=== PATIENT | male | born 1945 | race Caucasian/White ===

== ENCOUNTER 2021-04-13 14:13 | Outpatient (CLI) | payer OTHER, SELFPAY ==
--- NOTE | 2021-04-13 14:45 | USCV_ITS ---
Tanvi Mario Age: 75 Gender: M : 1945 Exam Date: 04/13/2021 14:52 Ordering Phys: Pam Nogueira MD ([email or web address]) Technologist: Javi Kaur [place] [facility] [place]: STAGE 3 KIDNEY CA BP: 123 / 76 HR: 68 Rhythm: Sinus Technical Quality: Adequate MEASUREMENTS (Male / Female) Normal Values 2D ECHO LV Diastolic Diameter PLAX 4.0 cm 4.2 - 5.9 / 3.9 - 5.3 cm LV Systolic Diameter PLAX 2.5 cm IVS Diastolic Thickness 1.2 cm 0.6 - 1.0 / 0.6 - 0.9 cm IVS Systolic Thickness 1.4 cm LVPW Diastolic Thickness 1.1 cm 0.6 - 1.0 / 0.6 - 0.9 cm LVPW Systolic Thickness 1.4 cm LVOT Diameter 2.0 cm LV Ejection Fraction 2D Teich 68.4 % LV Ejection Fraction MOD 2C 68.0 % LV Ejection Fraction 2C AL 67.7 % LA Diameter 3.9 cm LA Width 5.3 cm LA Height 5.6 cm RA Width 4.6 cm RA Height 5.4 cm Aorta at Sinotubular Diameter 3.5 cm DOPPLER AV Peak Velocity 153.0 cm/s LVOT Peak Velocity 101.0 cm/s AV Area Cont Eq vti 2.7 cm squared AV Area Cont Eq pk 2.1 cm squared MV Area PHT 5.0 cm squared Mitral E to A Ratio 0.6 MV E' Velocity 32.0 cm/s Mitral E to MV E' Ratio 8.9 Mitral E to LV E' Lateral Ratio 7.8 Mitral E to LV E' Septal Ratio 10.6 TR Peak Velocity 194.7 cm/s TR Peak Gradient 15.2 mmHg TV Peak E Velocity 92.0 cm/s Right Atrial Pressure 3.0 mmHg Pulmonary Artery Systolic Pressu 18.2 mmHg FINDINGS Left Ventricle Normal left ventricular size, systolic function and wall thickness, with no regional wall motion abnormalities. Left ventricular ejection fraction is estimated at 70 %. Grade I diastolic dysfunction (abnormal relaxation filling pattern), normal to mildly elevated filling pressures. Right Ventricle Normal right ventricular size and systolic function. Right ventricular systolic pressure 20 mmHg. Right Atrium Normal right atrial size. Right atrial pressure estimated at 3 mm Hg. Left Atrium Mildly increased left atrial size. Mitral Valve Structurally normal mitral valve. No mitral valve stenosis. Trace mitral valve regurgitation. Aortic Valve Structurally normal trileaflet aortic valve. No aortic valve stenosis. No aortic valve regurgitation. Tricuspid Valve Structurally normal tricuspid valve. Trace tricuspid valve regurgitation. Pulmonic Valve Pulmonic valve not well visualized. Pericardium No pericardial effusion. Aorta Normal size aortic root and proximal ascending aorta. Normal- sized inferior vena cava. CONCLUSIONS 1. Normal left ventricular size, systolic function and wall thickness, with no regional wall motion abnormalities. Left ventricular ejection fraction is estimated at 70 %. Grade I diastolic dysfunction (abnormal relaxation filling pattern), normal to mildly elevated filling pressures. 2. Normal right ventricular size and systolic function. 3. Pulmonary artery pressure estimated at 20 mmHg. 4. Mildly increased left atrial size. 5. No prior similar studies to compare. Pam Nogueira MD (Electronically Signed) Final Date: 14 April 2021 18:04 S
--- NOTE | 2021-04-13 15:00 | US_ITS ---
WS: [id number] RENAL ULTRASOUND HISTORY: STAGE 3A CHRONIC KIDNEY DZ COMPARISON: None available. TECHNIQUE: 2-D and color Doppler imaging of the kidney submitted. Right kidney: 11.3 cm x 5.8 cm x 5.0 cm. Normal echogenicity with no hydronephrosis or mass. Left kidney: 10.6 cm x 6.1 cm x 6.0 cm. Normal echogenicity with no hydronephrosis or mass. Aorta: Normal. Urinary Bladder: Normal distention. US/US renal BI* [id number] IMPRESSION: Normal renal ultrasound.
== END 2021-04-13 14:14 | disposition home or self-care (01) ==
LOC: RAD 14:16
PROVIDERS: PCP Nurse Practitioner; Visit Provider Registered Nurse
DX: N18.31 Chronic kidney disease, stage 3a (principal)
CPT/HCPCS: 76770; 93306

== ENCOUNTER → 2022-05-14 10:29 | Outpatient (BNVA) | payer OTHER, SELFPAY | PROVIDERS: PCP Nurse Practitioner; Visit Provider Internal Medicine Cardiovascular Disease | DX: I49.3 Ventricular premature depolarization (principal); R00.1 Bradycardia, unspecified; I10 Essential (primary) hypertension; Z87.891 Personal history of nicotine dependence | CPT/HCPCS: 99214 ==

== ENCOUNTER → 2023-01-29 13:02 | Outpatient (BNVA) | payer OTHER, SELFPAY | PROVIDERS: PCP Nurse Practitioner; Visit Provider Dermatology | DX: L57.0 Actinic keratosis (principal); L81.4 Other melanin hyperpigmentation; L57.8 Other skin changes due to chronic exposure to nonionizing radiation; Z85.828 Personal history of other malignant neoplasm of skin; Z87.891 Personal history of nicotine dependence | CPT/HCPCS: 17000; 17003; 99213 ==

== ENCOUNTER → 2023-05-13 11:03 | Outpatient (BNVA) | payer OTHER, SELFPAY | PROVIDERS: PCP Nurse Practitioner; Visit Provider Internal Medicine Cardiovascular Disease | DX: R00.1 Bradycardia, unspecified (principal); I49.3 Ventricular premature depolarization; I10 Essential (primary) hypertension; Z87.891 Personal history of nicotine dependence | CPT/HCPCS: 99214 ==

== ENCOUNTER → 2024-01-30 13:45 | Outpatient (BNVA) | payer OTHER, SELFPAY | PROVIDERS: PCP Nurse Practitioner; Visit Provider Nurse Practitioner Family | DX: L81.4 Other melanin hyperpigmentation (principal); L57.8 Other skin changes due to chronic exposure to nonionizing radiation; L57.0 Actinic keratosis; Z85.828 Personal history of other malignant neoplasm of skin | CPT/HCPCS: 17004; 99214 ==

== ENCOUNTER → 2024-05-11 10:03 | Outpatient (BNVA) | payer OTHER, SELFPAY | PROVIDERS: PCP Nurse Practitioner; Visit Provider Internal Medicine Cardiovascular Disease | DX: I49.3 Ventricular premature depolarization (principal); E78.2 Mixed hyperlipidemia; I10 Essential (primary) hypertension; E11.9 Type 2 diabetes mellitus without complications; Z87.891 Personal history of nicotine dependence; Z79.84 Long term (current) use of oral hypoglycemic drugs | CPT/HCPCS: 99214 ==

== ENCOUNTER 2024-06-17 15:01 | Outpatient (CLI) | payer OTHER, SELFPAY ==
[2024-06-17 15:55] LABS: Basophils % 0.6 %; Eosinophils # 0.4 10^3/uL (0.0-0.8); Eosinophils % 5.5 %; Hematocrit 44.6 % (37-53); Lymphocytes # 0.9 10^3/uL (0.8-4.8); Lymphocytes % 13.5 %; Mean Corpuscular HGB Conc 33.6 g/dL (30-55); Mean Corpuscular Hemoglobin 28.6 pg (27-33); Mean Platelet Volume 9.9 fL (7.4-10.4); Monocytes # 0.5 10^3/uL (0.2-0.9); Monocytes % 7.7 %; Neutrophils # 4.88 10^3/uL (1.8-7.7); Neutrophils % 72.4 %; Nucleated Red Blood Cells % 0 %; Platelet Count 156 10^3/cmm (157-399); Red Blood Count 5.25 10^6/uL (3.85-5.65); Red Cell Distribution Width 13.4 % (12.1-15.1); White Blood Count 6.74 10^3/uL (3.29-11.43)
[2024-06-17 17:11] LABS: 25 Hydroxy Vitamin D 30 ng/mL (30-100); Albumin Level 4.3 g/dL (3.5-5.2); Anion Gap 17.7 (5-19); Blood Urea Nitrogen 25 mg/dL (8-23); Calcium 9.6 mg/dL (8.5-10.5); Calcium 9.7 mg/dL (8.5-10.5); Carbon Dioxide 24 mmol/L (22-29); Chloride 99 mmol/L (98-107); Glucose 141 mg/dL (65-115); Phosphorus 3.6 mg/dL (2.5-4.5); Potassium 3.7 mmol/L (3.5-5.1); Sodium 137 mmol/L (136-145)
[2024-06-17 17:13] LABS: Parathyroid Hormone 27.1 pg/mL (15-65)
[2024-06-17 17:24] LABS: Creatinine Urine, Random 149 mg/dL (39-259); Microalbum Creatinine Ratio Ur 7 mg/dL (0-20); Microalbumin Random Urine 1 ug/dL (0-20)
== END 2024-06-17 15:02 | disposition home or self-care (01) ==
LOC: LAB 15:05
PROVIDERS: PCP Nurse Practitioner; Visit Provider Internal Medicine Nephrology
DX: N18.31 Chronic kidney disease, stage 3a (principal); E55.9 Vitamin D deficiency, unspecified
CPT/HCPCS: 80069; 82044; 82306; 82310; 83970; 85025

== ENCOUNTER 2024-11-05 07:14 | Emergency (ER) | payer OTHER, MEDICARE, SELFPAY ==
[2024-11-05 07:19] VITALS: BP 132/86; PULSE 92; RESP 18; TEMP 36.2; O2SAT 98; BMI 24.3
--- NOTE | 2024-11-05 07:22 | W.ED.NECK ---
HPI - Neck Pain/Injury General: Chief Complaint: Neck Pain/Injury Stated Complaint: neck pain/nausea Time Seen by Provider: 11/05/24 07:21 History of Present Illness: 79-year-old male presents emergency room complaining of severe neck pain. He has chronic pain in his neck. It is worse with movement. There is a difficulty sleeping due to discomfort. No recent reinjury or trauma he is having increasing discomfort. No fever sweats or chills Associated symptoms: Reports nausea Related Data Home Medications ?Medication ?Instructions ?Recorded ?Confirmed aspirin 81 mg tablet,delayed 81 mg PO DAILY 02/09/21 11/05/24 release cholecalciferol (vitamin D3) 25 25 mcg PO DAILY 02/09/21 11/05/24 mcg (1,000 unit) tablet hydrochlorothiazide 25 mg tablet 12.5 mg PO DAILY 02/09/21 11/05/24 metformin 500 mg tablet 250 mg PO BID 02/09/21 11/05/24 oxybutynin chloride 5 mg tablet 10 mg PO DAILY 04/13/21 11/05/24 amlodipine 10 mg tablet 10 mg PO DAILY 08/14/21 11/05/24 loratadine 10 mg capsule 10 mg PO DAILY 08/14/21 11/05/24 omeprazole 20 mg tablet,delayed 20 mg PO BID 08/14/21 11/05/24 release apple cider vinegar 600 mg capsule 600 mg PO DAILY 05/14/22 11/05/24 losartan 100 mg tablet 100 mg PO DAILY 05/14/22 11/05/24 omega-3 fatty acids 1,000 mg 500 mg PO DAILY 05/14/22 11/05/24 capsule psyllium husk 0.4 gram capsule 0.4 g PO DAILY 05/14/22 11/05/24 (Daily Fiber) ezetimibe 10 mg tablet 10 mg PO DAILY 05/11/24 11/05/24 rosuvastatin 10 mg tablet 10 mg PO DAILY 05/11/24 11/05/24 diclofenac sodium 1 % topical gel 4 g topical TID 11/05/24 11/05/24 empagliflozin 25 mg tablet 12.5 mg PO DAILY 11/05/24 11/05/24 Previous Rx's ?Medication ?Instructions ?Recorded hydrocodone 5 mg-acetaminophen 325 1 tab PO Q6H PRN pain #20 tabs 11/05/24 mg tablet prednisone 20 mg tablet 20 mg PO TID #15 tabs 11/05/24 tizanidine 4 mg tablet 4 mg PO Q6H PRN muscle spasticity 11/05/24 #20 tabs Allergies Allergy/AdvReac Type Severity Reaction Status Date / Time lisinopril Allergy Unknown Verified 05/11/24 10:17 Sulfa (Sulfonamide Allergy Unknown Verified 05/11/24 10:17 Antibiotics) Review of Systems Const: Denies: fever(s) or chills Card: Denies: chest pain Resp: Denies: dyspnea GI: Reports: nausea; Denies: abdominal pain : Denies: dysuria, urinary frequency or urinary urgency Musc: Reports: neck pain; Denies: back pain Skin/Breast: Denies: rash PFSH ED PFSH: Medical History PVC (premature ventricular contraction) History of nonmelanoma skin cancer HTN (hypertension) Hyperlipidemia Diabetes Surgical History History of total hip replacement Family History Denies family history of Diabetes CAD (coronary artery disease) Stroke Social History Smoking and tobacco/nicotine status: former use of tobacco/nicotine (quit in 1980) Alcohol intake: never Substance/Drug Use: never Physical Exam Const: GENERAL APPEARANCE: cooperative ORIENTATION/CONSCIOUSNESS: Yes awake, Yes oriented to person, Yes oriented to place and Yes oriented to time HENMT: COMMON NORMALS: normocephalic, atraumatic and hearing grossly normal bilaterally HEAD & SCALP: normocephalic and atraumatic Neck/C-Spine: OTHER: Pain with range of motion of the neck. Resp: COMMON NORMALS: normal respiratory effort, No retractions, No use of accessory muscles and clear to auscultation bilaterally AUSCULTATION: clear to auscultation bilaterally Cardio: COMMON NORMALS: regular rate, regular rhythm and No murmurs present (Cardio) RATE: regular rate RHYTHM: regular rhythm GI: COMMON NORMALS: Soft to palpation and No hepatosplenomegaly present AUSCULTATION: Yes normoactive bowel sounds PALPATION: Yes Soft to palpation, No Tenderness to palpation present (GI), No Guarding due to palpation present (GI) and Yes No hepatosplenomegaly present Extremity: COMMON NORMALS: normal to inspection, capillary refill normal, no clubbing, cyanosis or edema, no calf tenderness and no pedal edema Neuro: SENSORIUM/ORIENTATION: Yes oriented to person, Yes oriented to place and Yes oriented to time 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 CT of the neck shows central canal stenosis and foraminal stenosis. Not critical at this time patient has no loss of function. Will likely will need to follow-up with outpatient MRI will refer to neurosurgery and set up outpatient MRI Lab Data Radiology Impressions Cervical Spine CT 11/05/24 07:43 IMPRESSION: 1. No evidence of acute fracture or dislocation. 2. Advanced spondylitic changes cervical spine 3. Chronic appearing mild to moderate central canal stenosis C3-C4 C5-C6 and C6-C7. 4. Moderate to severe bony foraminal narrowing RIGHT C2-3, bilateral C3-4, bilateral C4-5, LEFT C5-6 5. Advanced facet arthropathy throughout the cervical spine 6. Findings could be followed up with cervical spine MRI All radiology interpretation(s) finalized by discharge Discharge Plan Discharge Patient Disposition: Home Clinical Impression: Neural foraminal stenosis of cervical spine, Spondylolisthesis of cervical region, Cervical spinal stenosis Condition: Stable Prescriptions: New tizanidine 4 mg tablet 4 mg PO Q6H PRN (Reason: muscle spasticity) Qty: 20 0RF Rx Instructions: do not exceed 3 doses per 24 hrs hydrocodone-acetaminophen 5-325 mg tablet 1 tab PO Q6H PRN (Reason: pain) Qty: 20 0RF prednisone 20 mg tablet 20 mg PO TID Qty: 15 0RF Rx Instructions: 1 p.o. 3 times daily x3 days, 1 p.o. twice daily x2 days, 1 p.o. daily x2 days No Action cholecalciferol (vitamin D3) 25 mcg (1,000 unit) tablet 25 mcg PO DAILY hydrochlorothiazide 25 mg tablet 12.5 mg PO DAILY metformin 500 mg tablet 250 mg PO BID aspirin 81 mg tablet,delayed release (DR/EC) 81 mg PO DAILY oxybutynin chloride 5 mg tablet 10 mg PO DAILY omeprazole 20 mg tablet,delayed release (DR/EC) 20 mg PO BID losartan 100 mg tablet 100 mg PO DAILY psyllium husk [Daily Fiber] 0.4 gram capsule 0.4 g PO DAILY apple cider vinegar 600 mg capsule 600 mg PO DAILY omega-3 fatty acids 1,000 mg capsule 500 mg PO DAILY loratadine 10 mg capsule 10 mg PO DAILY amlodipine 10 mg tablet 10 mg PO DAILY ezetimibe 10 mg tablet 10 mg PO DAILY rosuvastatin 10 mg tablet 10 mg PO DAILY empagliflozin 25 mg Tablet 12.5 mg PO DAILY diclofenac sodium 1 % Gel 4 g TOPICAL TID Discharge Orders: Discharge ED (Routine); Ordered 11/05/24 Ordered By: Gerry Noyola Referrals: Amanda Marina FNP [Primary Care Provider] - Patient Instructions: Opioid Safety, Pain Management Activity Restrictions/Additional Instructions: Thank you for choosing [facility] for your healthcare needs today. It is very important that you follow up as instructed or that you return to the Emergency Department should you have concerns or if your condition changes or worsens in any way. You were seen in the emergency room with a complaint of neck pain. CT shows central canal stenosis in the neck as well as stenosis around the nerve roots. Will start you on pain medications steroids and muscle relaxers. Case management make arrangements for you to follow-up with orthopedic spine surgery as well as an outpatient MRI of the neck. Print Language: Danish Coding Level of Care Code ED Digester Cook for Gayathri Rojas
[2024-11-05] MEDS: ketorolac 30 mg/mL INJ IVP (07:32)
[2024-11-05] MEDS: orphenadrine 30 mg/mL Inj 2 mL 60 MG IM (07:33)
[2024-11-05] MEDS: dexamethasone 10 mg/mL INJ IM (07:34)
--- NOTE | 2024-11-05 07:43 | CT_ITS ---
WS: [id number] CT CERVICAL SPINE TECHNIQUE: Noncontrast CT of the cervical spine with coronal and sagittal reformatted images. CLINICAL INFORMATION: pain DLP: 185.[address] scans at [facility] use at least one of these dose optimization techniques: automated exposure control; mA and/or kV adjustment per patient size (includes targeted exams where dose is matched to clinical indication); or iterative reconstruction. FINDINGS: Straightening of the normal cervical lordosis. Moderate spondylitic changes. Normal craniocervical junction. Normal C1-C2 articulation. Dens is normal in appearance. Normal occipital condyles. No high-grade spinal canal narrowing. Normal C1 ring. No evidence of acute fracture or dislocation. Calcification along the nuchal ligament. Disc osteophyte complexes worse at C3- C4 C5-C6 and C6-C7. Slight anterolisthesis C5 on C6. Normal prevertebral soft tissues. Mastoids air cells are well aerated. CT/CT cervical spin wo con* [id number] IMPRESSION: 1. No evidence of acute fracture or dislocation. 2. Advanced spondylitic changes cervical spine 3. Chronic appearing mild to moderate central canal stenosis C3-C4 C5-C6 and C 6-C7. 4. Moderate to severe bony foraminal narrowing RIGHT C2-3, bilateral C3-4, cecil ateral C4-5, LEFT C5-6 5. Advanced facet arthropathy throughout the cervical spine 6. Findings could be followed up with cervical spine MRI
[2024-11-05 08:44] VITALS: BP 135/79; PULSE 66; O2SAT 98
[2024-11-05] MEDS: morphine 4 mg/mL SDV 1 mL IVP (10:13)
[2024-11-05 10:49] VITALS: BP 129/78; PULSE 66; RESP 16; O2SAT 98
[2024-11-05 11:27] VITALS: BP 129/78; PULSE 66; O2SAT 98
--- NOTE | 2024-11-09 08:15 | DCPLANNER ---
mri faxed to scheduling, messaged ortho for follow up and faxed rfs to [facility]
== END 2024-11-05 11:29 | disposition home or self-care (01) ==
PROVIDERS: Emergency Provider Family Medicine; PCP Nurse Practitioner
DX: M48.02 Spinal stenosis, cervical region (principal); M43.12 Spondylolisthesis, cervical region; Z79.84 Long term (current) use of oral hypoglycemic drugs; Z79.82 Long term (current) use of aspirin; Z87.891 Personal history of nicotine dependence; E11.9 Type 2 diabetes mellitus without complications; E78.5 Hyperlipidemia, unspecified; I10 Essential (primary) hypertension; Z85.828 Personal history of other malignant neoplasm of skin
CPT/HCPCS: 72125; 96374; 96375; 99285; J1100; J1885; J2270; J2360

== ENCOUNTER 2024-11-09 09:44 | Outpatient (CLI) | payer OTHER, SELFPAY ==
--- NOTE | 2024-11-09 09:46 | MR_ITS ---
WS: [id number] MRI CERVICAL SPINE NONCONTRAST TECHNIQUE: Sagittal T1, T2 and STIR imaging. Axial T2, gradient, and fiesta imaging. CLINICAL INFORMATION: CERVICALGIA W/RADICULOPATHY COMPARISON: CT 11/05/2024 FINDINGS: Straightening of the normal cervical lordosis. Slight anterolisthesis C5 on C6 C6 on C7. Slight retrolisthesis C3 on C4. C2-C3: Moderate RIGHT bony foraminal narrowing. Moderate facet arthropathy. C3-C4: Disc osteophyte complex with moderate central canal stenosis. Moderate LEFT greater than RIGHT bony foraminal narrowing. Moderate facet arthropathy. C4-C5: Disc osteophyte complex with mild central canal stenosis. Moderate RIGHT greater than LEFT bony foraminal narrowing. Moderate facet arthropathy. C5-C6: Mild to moderate central canal stenosis. Moderate RIGHT and mild LEFT bony foraminal narrowing. Moderate facet arthropathy. C6-C7: LEFT paracentral protrusion impinges the LEFT ventral cervical cord. Moderate LEFT foraminal narrowing. Mild RIGHT foraminal narrowing. Mild to moderate central canal stenosis. C7-T1: Moderate LEFT bony foraminal narrowing. Moderate facet arthropathy. Spinal canal is patent. Visualized brain stem structures: Normal. Prevertebral soft tissues: Normal. MR/MR cervical spin wo con* [id number] IMPRESSION: 1. Moderate central canal stenosis C3-C4. 2. Mild to moderate central canal stenosis C4-C5 C5-C6 and C6-C7. 3. LEFT paracentral protrusion C6-7 impinges the LEFT ventral cervical cord. 4. Moderate bony foraminal narrowing RIGHT C2-3, RIGHT C4-5, RIGHT C5-6, and L EFT C6-7. 5. Moderate to advanced facet arthropathy throughout the cervical spine.
== END 2024-11-09 09:45 | disposition home or self-care (01) ==
LOC: RAD 09:45
PROVIDERS: PCP Nurse Practitioner; Visit Provider Family Medicine
DX: M54.12 Radiculopathy, cervical region (principal); M48.02 Spinal stenosis, cervical region; M50.223 Other cervical disc displacement at C6-C7 level; M47.892 Other spondylosis, cervical region; M25.78 Osteophyte, vertebrae; M48.03 Spinal stenosis, cervicothoracic region; M47.893 Other spondylosis, cervicothoracic region
CPT/HCPCS: 72141

== ENCOUNTER → 2024-11-26 08:03 | Outpatient (BNVA) | payer OTHER, SELFPAY | PROVIDERS: PCP Nurse Practitioner; Visit Provider Orthopaedic Surgery | DX: M54.2 Cervicalgia (principal) | CPT/HCPCS: 72050; 99204 ==

== ENCOUNTER → 2024-12-15 14:44 | Outpatient (BNVA) | payer OTHER, SELFPAY | PROVIDERS: PCP Nurse Practitioner; Referring Provider Nurse Practitioner; Visit Provider Nurse Practitioner Family | DX: M54.12 Radiculopathy, cervical region (principal); G89.29 Other chronic pain | CPT/HCPCS: 99214 ==

== ENCOUNTER → 2024-12-22 14:53 | Outpatient (BNVA) | payer OTHER, SELFPAY | PROVIDERS: PCP Nurse Practitioner; Visit Provider Nurse Practitioner Family | DX: M79.10 Myalgia, unspecified site (principal); M54.12 Radiculopathy, cervical region; G89.29 Other chronic pain | CPT/HCPCS: 20553; 99214; J1010; J3490 ==

== ENCOUNTER → 2025-01-04 08:42 | Outpatient (BNVA) | payer OTHER, SELFPAY | PROVIDERS: PCP Nurse Practitioner; Visit Provider Student in an Organized Health Care Education/Training Program | DX: Z12.11 Encounter for screening for malignant neoplasm of colon (principal) | CPT/HCPCS: 99204 ==

== ENCOUNTER → 2025-01-05 10:01 | Outpatient (BNVA) | payer OTHER, SELFPAY | PROVIDERS: PCP Nurse Practitioner; Visit Provider Nurse Practitioner Family | DX: M54.2 Cervicalgia (principal); M54.12 Radiculopathy, cervical region; G89.29 Other chronic pain | CPT/HCPCS: 99214 ==

== ENCOUNTER → 2025-01-20 13:26 | Outpatient (BNVA) | payer OTHER, SELFPAY | PROVIDERS: PCP Nurse Practitioner; Visit Provider Anesthesiology Pain Medicine | DX: M47.812 Spondylosis without myelopathy or radiculopathy, cervical region (principal); M54.2 Cervicalgia | CPT/HCPCS: 64490; 64491; 64492; J3490; J9999 ==

== ENCOUNTER 2025-01-26 09:14 | Day surgery (SDC) | payer OTHER, SELFPAY ==
[2025-01-26 09:29] VITALS: BP 131/75; PULSE 77; RESP 16; TEMP 36.5; O2SAT 98; BMI 23.7
--- NOTE | 2025-01-26 09:56 | ANES.PREANE2 ---
Pre-Anesthetic Assessment Height/Weight: Height 1.88 m Weight 83.915 kg Temp Pulse Resp BP Pulse Ox O2 Del Method 97.7 F 77 16 131/75 98 Room Air 01/26/25 09:01/26/25 09:29 01/26/25 09:29 01/26/25 09:29 01/26/25 09:29 01/26/25 09:29 Operation Date: 01/26/25 10:30 Proposed Procedures p Colonoscopy 38088 G0105 Z12.11(Not Applicable) - Jason Zamora MD Was Beta Vidya taken within 24 hours: N/A Was Clonidine taken within 24 hours: N/A Last intake: Intake Last Liquid Date 01/25/25 Last Liquid Time 23:00 Last Solid Date 01/24/25 Last Solid Time 20:00 Social No alcohol and No tobacco Exam alert, oriented x 3 and clear to auscultation bilaterally Airway Submandibular: within normal limits Cervical ROM: within normal limits Mallampati: Class II Dentition: other Comments: Comments: dentures Pulmonary None reported CV/HEM Hypertension Kidney Stones Hepatic None reported GI None reported Metabolic Diabetes Mellitus [facility] [place] None reported Neuropsych None reported Anesthetic Plan ASA status: 3 Anesthesia: Anesthesia Evaluation, General and MAC Risk of > 500 ml blood loss (7ml/kg in children): No Medications/Allergies Home Medications ?Medication ?Instructions ?Recorded ?Confirmed ?Last Taken ?Type aspirin 81 mg tablet,delayed 81 mg PO DAILY 02/09/21 01/26/25 01/20/25 05:00 History release cholecalciferol (vitamin D3) 25 25 mcg PO DAILY 02/09/21 01/26/25 01/20/25 05:00 History mcg (1,000 unit) tablet hydrochlorothiazide 25 mg tablet 12.5 mg PO DAILY 02/09/21 01/26/25 01/20/25 05:00 History metformin 500 mg tablet 250 mg PO BID 02/09/21 01/26/25 01/25/25 History oxybutynin chloride 5 mg tablet 10 mg PO DAILY 04/13/21 01/26/25 01/20/25 05:00 History amlodipine 10 mg tablet 10 mg PO DAILY 08/14/21 01/26/25 01/20/25 05:00 History loratadine 10 mg capsule 10 mg PO DAILY 08/14/21 01/26/2501/19/25 21:00 History omeprazole 20 mg tablet,delayed 20 mg PO BID 08/14/21 01/26/25 01/20/25 05:00 History release apple cider vinegar 600 mg capsule 600 mg PO DAILY 05/14/22 01/26/25 01/20/25 05:00 History losartan 100 mg tablet 100 mg PO DAILY 05/14/22 01/26/25 01/19/25 21:00 History omega-3 fatty acids 1,000 mg 500 mg PO DAILY 05/14/22 01/26/25 01/19/25 18:00 History capsule psyllium husk 0.4 gram capsule 0.4 g PO DAILY 05/14/22 01/26/25 01/20/25 05:00 History (Daily Fiber) ezetimibe 10 mg tablet (Zetia) 10 mg PO DAILY 05/11/24 01/26/25 01/20/25 05:00 History rosuvastatin 10 mg tablet 10 mg PO DAILY 05/11/24 01/26/25 01/19/25 18:00 History diclofenac sodium 1 % topical gel 4 g topical TID 11/05/24 01/26/25 01/20/25 05:00 History empagliflozin 25 mg tablet 12.5 mg PO DAILY 11/05/24 01/26/25 01/20/25 05:00 History (Jardiance) hydrocodone 5 mg-acetaminophen 325 1 tab PO Q6H PRN pain #20 tabs 11/05/24 01/26/25 01/20/25 05:00 Rx mg tablet baclofen 10 mg tablet 10 mg PO DAILY PRN Spasms 01/04/25 01/26/25 01/20/25 05:00 History tramadol 50 mg tablet 50 mg PO Q8H PRN Pain, Mild 01/04/25 01/26/25 Unknown History gabapentin 300 mg capsule 300 mg PO TID #90 caps 01/05/25 01/26/25 01/25/25 Rx Allergies Allergy/AdvReac Type Severity Reaction Status Date / Time lisinopril Allergy ALGY-Hives Verified 01/26/25 09:36 Sulfa (Sulfonamide Allergy Unknown Verified 01/26/25 09:36 Antibiotics) Current Medications Generic Name Dose Route Start Last Admin Trade Name Freq PRN Reason Stop Dose Admin Sodium Chloride 1,000 mls @ 15 mls/hr 01/26/25 09:17 01/26/25 09:44 Sodium Chloride 0.9% IV 01/27/25 09:16 15 mls/hr .Q24H PRN Administration COLONOSCOPY FLUIDS PFSH Anesthesia Medical History PVC (premature ventricular contraction) History of nonmelanoma skin cancer HTN (hypertension) Hyperlipidemia Diabetes Surgical History History of total hip replacement Family History Denies family history of Diabetes CAD (coronary artery disease) Stroke Social History Smoking and tobacco/nicotine status: never used tobacco/nicotine Alcohol intake: never Substance/Drug Use: never Data Anesthesia Cardiac Studies: Echocardiogram 04/13/21 Holter Monitor 02/22/21
--- NOTE | 2025-01-26 10:12 | W.PM.OPSUD ---
Surgery/Procedure H&P Update DATE OF PROCEDURE: January 26, 2025 DATE H&P PERFORMED: 01/04/25 H&P UPDATE INFORMATION: I have reviewed H&P completed within last 30 days, I have examined patient prior to procedure and No changes to prior documentation PLANNED PROCEDURE: Operation Date: 01/26/25 10:30 Proposed Procedures p Colonoscopy [id number] G0105 Z12.11(Not Applicable) - Jason Zamora MD
[2025-01-26 10:36] VITALS: BP 97/60; PULSE 51; RESP 16; TEMP 36.3; O2SAT 98
--- NOTE | 2025-01-26 11:06 | ANE.PACU2 ---
Inpatient post-anesthesia follow up: Airway intact: Yes Vital signs: Temperature 97.3 F Pulse Rate 51 Respiratory Rate 16 Blood Pressure 97/60 Pulse Oximetry 98 Oxygen Delivery Me thod Room Air Oxygen Flow Rate Fraction of Inspir ed Oxygen Hydration adequate: Yes Nausea and vomiting: No Pain level: 1 Mental status: Baseline
== END 2025-01-26 11:06 | disposition home or self-care (01) ==
PROVIDERS: PCP Nurse Practitioner; Visit Provider Student in an Organized Health Care Education/Training Program
PROC: 0DJD8ZZ Inspection of Lower Intestinal Tract, Via Natural or Artificial Opening Endoscopic (ICD-10-PCS; CPT 45378; principal; 2025-01-26 10:30)
DX: Z12.11 Encounter for screening for malignant neoplasm of colon (principal); D12.2 Benign neoplasm of ascending colon; I10 Essential (primary) hypertension; E78.5 Hyperlipidemia, unspecified; E11.9 Type 2 diabetes mellitus without complications; Z79.82 Long term (current) use of aspirin; Z79.84 Long term (current) use of oral hypoglycemic drugs; K21.9 Gastro-esophageal reflux disease without esophagitis
CPT/HCPCS: 36416; 45380; 45385; 82962; 88305; J2704; J7030

== ENCOUNTER → 2025-02-03 08:46 | Outpatient (BNVA) | payer OTHER, SELFPAY | PROVIDERS: PCP Nurse Practitioner; Visit Provider Nurse Practitioner Family | DX: M54.2 Cervicalgia (principal); M54.12 Radiculopathy, cervical region; G89.29 Other chronic pain | CPT/HCPCS: 99214 ==

== ENCOUNTER → 2025-02-10 15:08 | Outpatient (BNVA) | payer OTHER, SELFPAY | PROVIDERS: PCP Nurse Practitioner; Visit Provider Anesthesiology Pain Medicine | DX: M47.812 Spondylosis without myelopathy or radiculopathy, cervical region (principal); M54.2 Cervicalgia | CPT/HCPCS: 64490; 64491; 64492; J3490; J9999 ==

== ENCOUNTER → 2025-02-15 13:38 | Outpatient (BNVA) | payer OTHER, SELFPAY | PROVIDERS: PCP Nurse Practitioner; Visit Provider Student in an Organized Health Care Education/Training Program | DX: Z09 Encounter for follow-up examination after completed treatment for conditions other than malignant neoplasm (principal) | CPT/HCPCS: 99213 ==

== ENCOUNTER → 2025-02-23 14:11 | Outpatient (BNVA) | payer OTHER, SELFPAY | PROVIDERS: PCP Nurse Practitioner; Visit Provider Podiatrist Foot & Ankle Surgery | DX: L60.0 Ingrowing nail (principal); L03.031 Cellulitis of right toe | CPT/HCPCS: 99204 ==

== ENCOUNTER → 2025-02-25 15:13 | Outpatient (BNVA) | payer OTHER, SELFPAY | PROVIDERS: PCP Nurse Practitioner; Visit Provider Nurse Practitioner Family | DX: L81.4 Other melanin hyperpigmentation (principal); L57.8 Other skin changes due to chronic exposure to nonionizing radiation; D69.2 Other nonthrombocytopenic purpura; D22.5 Melanocytic nevi of trunk; L82.1 Other seborrheic keratosis | CPT/HCPCS: 17000; 99213 ==

== ENCOUNTER → 2025-03-02 13:25 | Outpatient (BNVA) | payer OTHER, SELFPAY | PROVIDERS: PCP Nurse Practitioner; Visit Provider Nurse Practitioner Family | DX: M54.2 Cervicalgia (principal); M54.12 Radiculopathy, cervical region; G89.29 Other chronic pain | CPT/HCPCS: 99214 ==

== ENCOUNTER → 2025-03-04 06:50 | Outpatient (BNVA) | payer OTHER, SELFPAY | PROVIDERS: PCP Nurse Practitioner; Visit Provider Podiatrist Foot & Ankle Surgery | DX: L60.0 Ingrowing nail (principal); L03.031 Cellulitis of right toe | CPT/HCPCS: 11750; 99214; J9999 ==

== ENCOUNTER → 2025-03-18 13:04 | Outpatient (BNVA) | payer OTHER, SELFPAY | PROVIDERS: PCP Nurse Practitioner; Visit Provider Podiatrist Foot & Ankle Surgery | DX: L60.0 Ingrowing nail (principal); L03.031 Cellulitis of right toe | CPT/HCPCS: 99213 ==

== ENCOUNTER 2025-04-20 15:03 | Outpatient (CLI) | payer OTHER, SELFPAY ==
--- NOTE | 2025-04-20 15:13 | USR_ITS ---
PROCEDURE INFORMATION: Exam: US Duplex Bilateral Lower Extremity Arteries Exam date and time: 04/20/2025 3:39 PM Age: 79 years old Clinical indication: Swelling (edema) of limb; Lower extremity, bilateral; Additional info: Bilateral leg swelling TECHNIQUE: Imaging protocol: Real-time ultrasound scan of the arteries of the bilateral lower extremities with 2-D norman scale, color Doppler flow and spectral waveform analysis. Images documented and saved. COMPARISON: US renal BI* [id number] 04/13/2021 3:06 PM FINDINGS: Right common femoral artery: No occlusion or significant stenosis. Normal waveform. Right superficial femoral artery: No occlusion or significant stenosis. Normal waveform. Right popliteal artery: No occlusion or significant stenosis. Normal waveform. Right calf/foot arteries: No occlusion or significant stenosis in the visualized arteries. Normal waveforms. Dorsalis pedis artery is patent. Left common femoral artery: No occlusion or significant stenosis. Normal waveform. Left superficial femoral artery: No occlusion or significant stenosis. Normal waveform. Left popliteal artery: No occlusion or significant stenosis. Normal waveform. Left calf/foot arteries: No occlusion or significant stenosis in the visualized arteries. Normal waveforms. Dorsalis pedis artery is patent. Right AKOSUA 0.97. Left AKOSUA 1.00. US/[place] [id number] IMPRESSION: No stenosis or occlusion.
== END 2025-04-20 15:04 | disposition home or self-care (01) ==
LOC: RAD 15:05
PROVIDERS: PCP Nurse Practitioner; Visit Provider Nurse Practitioner
DX: I73.9 Peripheral vascular disease, unspecified (principal); Z01.89 Encounter for other specified special examinations
CPT/HCPCS: 93925

== ENCOUNTER → 2025-05-18 10:25 | Outpatient (BNVA) | payer OTHER, SELFPAY | PROVIDERS: PCP Nurse Practitioner; Visit Provider Internal Medicine Cardiovascular Disease | DX: I49.3 Ventricular premature depolarization (principal); E78.5 Hyperlipidemia, unspecified; I10 Essential (primary) hypertension; E11.9 Type 2 diabetes mellitus without complications; Z79.84 Long term (current) use of oral hypoglycemic drugs; Z87.891 Personal history of nicotine dependence | CPT/HCPCS: 99214 ==